=== PATIENT | male | born 1960 | race Two or more races ===

== ENCOUNTER 2021-02-13 15:26 | Emergency (ER) | payer MEDICARE, OTHER ==
[~2021-02-13] VITALS: Ht 172.7 cm; Wt 109.8 kg
[2021-02-13] MEDS ORDERED: SODIUM BICARBONATE 8.4% INJ 50ML SYRINGE IV ONE (15:27)
[2021-02-13] MEDS ORDERED: AMIODARONE HCL (50 MG/ ML) 3 ML VIAL IV ONE (15:27)
[2021-02-13] MEDS ORDERED: EPINEPHrine HCL 1 MG/10 ML SYRG IV ONE (15:27)
[2021-02-13] MEDS ORDERED: SODIUM BICARBONATE 8.4% INJ 50ML SYRINGE ONE (15:32)
[2021-02-13] MEDS ORDERED: SODIUM BICARBONATE 8.4 % INJ 50ML VIAL IV ONE (15:45)
== END 2021-02-13 17:16 ==
LOC: EDBD 15:26 → ER 15:26 → EDSEX 15:26 → ER 17:16
DX: I46.9 Cardiac arrest, cause unspecified (principal); J96.90 Respiratory failure, unspecified, unspecified whether with hypoxia or hypercapnia; I12.0 Hypertensive chronic kidney disease with stage 5 chronic kidney disease or end stage renal disease; N18.6 End stage renal disease; Z99.2 Dependence on renal dialysis
CPT/HCPCS: 92950; 99285; J0171; J0282